=== PATIENT | male | born 1950 | race African-American/Black ===

== ENCOUNTER 2019-12-10 21:16 | Inpatient (IN) | payer MEDICARE, OTHER ==
[~2019-12-10] VITALS: Ht 172.7 cm; Wt 64.9 kg
[2019-12-10] MEDS ORDERED: SODIUM CHLORIDE 0.9% 1,000 ML IV ONE (21:40)
[2019-12-10] MEDS ORDERED: LEVETIRACETAM 500MG PREMIX 100 ML IV ONE (21:45)
[2019-12-10] MEDS ORDERED: LORAZEPAM 2MG/ML CPJ IV ONE ×2 (21:45→23:15)
[2019-12-10] MEDS ORDERED: LORAZEPAM 2MG/ML CPJ ONE (21:45)
[2019-12-10] MEDS ORDERED: MIDAZOLAM HCL 2 MG/2 ML VIAL ONE (22:11)
[2019-12-10] MEDS ORDERED: PROPOFOL 10MG/ML 100ML 100 ML IV ONE ×2 (22:16→22:30)
[2019-12-10] MEDS ORDERED: VECURONIUM BROMIDE 10 MG/VIAL IV ONE (22:30)
[2019-12-10] MEDS ORDERED: MIDAZOLAM HCL 2 MG/2 ML VIAL IV ONE (22:30)
[2019-12-10] MEDS ORDERED: ETOMIDATE 2MG/ML 10ML VIAL IV ONE (22:30)
[2019-12-10 22:36] LABS: BASOPHILS % 1.1 % (0.0-2.0); HEMATOCRIT. 38.8 % (42.0-52.0); HEMOGLOBIN. 12.2 g/dL (14.0-18.0); LYMPHOCYTES % 19.4 % (20.0-50.0); MEAN CORPUSCULAR HEMOGLOBIN 26.6 pg (28.0-32.0); MEAN CORPUSCULAR VOLUME 84.4 fL (80.0-94.0); MEAN PLATELET VOLUME 8.2 fl (7.4-10.4); MONOCYTES % 5.6 % (2.0-8.0); NEUTROPHILS % 73.9 % (40.0-76.0); PLATELET 232 x1000/uL (130-400); RED CELL DISTRIBUTION WIDTH 26.7 % (11.6-14.6)
[2019-12-10 22:53] LABS: CHLORIDE 104 mEq/L (98-107)
[2019-12-10 22:58] LABS: PLATELET ESTIMATE NORMAL
[2019-12-10 23:04] LABS: CREATINE KINASE 100 IU/L (39-308); ETHANOL BLOOD < 10 mg/dL
[2019-12-10 23:14] LABS: CARBAMAZEPINE < 0.5 ug/mL (4-12); PHENOBARBITAL < 2.1 ug/mL (15.0-40.0); VALPROIC ACID < 3.0 ug/mL (50-100)
[2019-12-10] MEDS ORDERED: LORAZEPAM 2MG/ML CPJ IM ONE (23:15)
[2019-12-11] VITALS (75 sets, daily range): BP systolic 106–179; BP diastolic 56–104
[2019-12-11 00:45] LABS: BG BASE EXCESS -2.9 mmol/L (-2.0-2.0); BG CARBOXYHEMOGLOBIN 0.3 % (0.5-1.5); BG DEOXYHEMOGLOBIN 3.4 % (0.0-5.0); BG FRACTION INSPIRED OXYGEN 60; BG HCO3 ACT 22.6 mmol/L (22.0-26.0); BG METHEMOGLOBIN 0.2 % (0.0-1.5); BG OXYGEN SATURATION 96.6 % (92.0-98.5); BG OXYHEMOGLOBIN 96.1 % (94.0-97.0); BG PCO2 42.1 mmHg (35.0-45.0); BG PH 7.348 (7.350-7.450); BG PO2 97.4 mmHg (75.0-100.0); BG SAMPLE SITE LEFT BRACHIAL; BG TIDAL VOLUME(mL) 550 mL; BG TOTAL HEMOGLOBIN 11.7 g/dL (12.0-18.0); BG VENT MODE VENT - A/C; BG VENT RATE 14 set
[2019-12-11] MEDS: PROPOFOL 10MG/ML 100ML 100 ML IV PRN ×2 (03:28→08:28)
[2019-12-11] MEDS ORDERED: CARV12.545 MT (03:56)
[2019-12-11] MEDS ORDERED: TERA1CAP7 MT (03:57)
[2019-12-11] MEDS ORDERED: LORAZEPAM 2MG/ML CPJ IV PRN (05:45)
[2019-12-11] MEDS ORDERED: HYDRALAZINE 20MG/ML VIAL IV PRN (05:45)
[2019-12-11] MEDS ORDERED: LACTULOSE 20G/30ML UDC PO SCH (08:00)
[2019-12-11 08:15] LABS: BG BASE EXCESS -2.7 mmol/L (-2.0-2.0); BG CARBOXYHEMOGLOBIN 0.3 % (0.5-1.5); BG DEOXYHEMOGLOBIN 1.9 % (0.0-5.0); BG FRACTION INSPIRED OXYGEN 60; BG HCO3 ACT 21.1 mmol/L (22.0-26.0); BG OXYGEN SATURATION 98.1 % (92.0-98.5); BG OXYHEMOGLOBIN 97.8 % (94.0-97.0); BG PCO2 33.4 mmHg (35.0-45.0); BG PH 7.419 (7.350-7.450); BG PO2 134.4 mmHg (75.0-100.0); BG SAMPLE SITE RIGHT RADIAL; BG TIDAL VOLUME(mL) 550 mL; BG TOTAL HEMOGLOBIN 11.6 g/dL (12.0-18.0); BG VENT MODE VENT - A/C; BG VENT RATE 14 set
[2019-12-11] MEDS: HEPARIN 5000 UNITS/ML VIAL SUBCUT SCH ×2 (08:30→20:32)
[2019-12-11 08:39] LABS: CLARITY URINE CLEAR (CLEAR); COLOR URINE YELLOW (YELLOW); KETONES URINE NEGATIVE (NEGATIVE); LEUKOCYTE ESTERASE URINE NEGATIVE (NEGATIVE); NITRITE URINE NEGATIVE (NEGATIVE); OCCULT BLOOD URINE 1+ (NEGATIVE); PH URINE 5.5 (4.5-8.0); PROTEIN URINE NEGATIVE (NEGATIVE); SPECIFIC GRAVITY URINE 1.025 (1.005-1.030); UROBILINOGEN URINE 0.2 E.U./dL (0.2-1.0)
[2019-12-11] MEDS ORDERED: RIFAXIMIN 550 MG TABLET PO SCH (09:00)
[2019-12-11] MEDS ORDERED: PANTOPRAZOLE SODIUM 40 MG/VIAL IV SCH (09:00)
[2019-12-11] MEDS ORDERED: LEVETIRACETAM 500MG PREMIX 100 ML IV SCH ×2 (09:00→11:45)
[2019-12-11 09:01] LABS: *AMPHETAMINES SCREEN URINE NEGATIVE (NEGATIVE); *BARBITURATES SCREEN URINE NEGATIVE (NEGATIVE); *COCAINE SCREEN URINE NEGATIVE (NEGATIVE); CANNABINOID URINE SCREEN NEGATIVE (NEGATIVE); OPIATES URINE SCREEN NEGATIVE (NEGATIVE); PHENCYCLIDINE URINE SCREEN NEGATIVE (NEGATIVE)
[2019-12-11 09:02] LABS: *BENZODIAZEPINES SCREEN URINE PRESUMTIVE POSITIVE (NEGATIVE)
[2019-12-11 09:03] LABS: METHADONE URINE SCREEN NEGATIVE (NEGATIVE)
[2019-12-11] MEDS ORDERED: FOLI0.4T2 MT (09:37)
[2019-12-11] MEDS ORDERED: FERR325T6 PO (09:37)
[2019-12-11] MEDS ORDERED: CARV12.545 PO (09:37)
[2019-12-11] MEDS: PANTOPRAZOLE 40MG DR TABLET PO SCH (09:45)
[2019-12-11] MEDS ORDERED: PROPOFOL 10MG/ML 100ML 100 ML IV PRN (11:15)
[2019-12-11 12:07] LABS: BASOPHILS % 1.1 % (0.0-2.0); EOSINOPHILS % 0.2 % (0.0-5.0); HEMATOCRIT. 33.7 % (42.0-52.0); LYMPHOCYTES % 9.5 % (20.0-50.0); MEAN CORPUSCULAR HEMOGLOBIN 26.4 pg (28.0-32.0); MEAN CORPUSCULAR VOLUME 81.1 fL (80.0-94.0); MEAN PLATELET VOLUME 8.6 fl (7.4-10.4); MONOCYTES % 11.9 % (2.0-8.0); NEUTROPHILS % 77.3 % (40.0-76.0); PLATELET 195 x1000/uL (130-400); RED BLOOD CELL COUNT 4.16 mill/uL (4.7-6.1); RED CELL DISTRIBUTION WIDTH 26.7 % (11.6-14.6)
[2019-12-11 12:21] LABS: CHLORIDE 108 mEq/L (98-107)
[2019-12-11] MEDS: SODIUM CHLORIDE 0.9% 1,000 ML IV SCH (13:06)
[2019-12-11] MEDS: FOLIC ACID 1MG TABLET PO SCH (13:06)
[2019-12-11] MEDS: THIAMINE HCL 100MG TABLET PO SCH (13:06)
[2019-12-11] MEDS: MULTIVITAMINS,THER W-MINERALS TABLET PO SCH (13:06)
[2019-12-11 13:30] LABS: HEPATITIS B SURFACE ANTIGEN NEGATIVE
[2019-12-11 14:00] LABS: HEPATITIS A AB IGM NEGATIVE (NEGATIVE)
[2019-12-11] MEDS: MIDAZOLAM HCL 50 MG in DEXTROSE 5% WATER 40 ML IV PRN ×2 (14:04→20:46)
[2019-12-11] MEDS: FENTANYL CITRATE/PF 500 MCG in SODIUM CHLORIDE 0.9% 40 ML IV PRN ×2 (14:04→20:45)
[2019-12-11 16:01] LABS: FERRITIN 82 ng/mL (22-322)
[2019-12-11 16:14] LABS: VITAMIN B12 SERUM 555 pg/mL (211-911)
[2019-12-11 16:21] LABS: FOLIC ACID (FOLATE) SERUM > 20.00 ng/mL (>5.38)
[2019-12-11] MEDS: PIPERACILLIN/TAZOBACTAM 3.375 G in DEXT 5% WATER 100 ML IV SCH ×2 (17:02→20:31)
[2019-12-11 17:20] LABS: CREATINE KINASE MB FRACTION 1.5 ng/mL (0.5-3.6)
[2019-12-11 17:24] LABS: PROTHROMBIN TIME 10.4 sec (9.6-11.0)
[2019-12-11] MEDS: CARVEDILOL 3.125 MG TABLET PO SCH (20:32)
[2019-12-11] MEDS: LEVETIRACETAM 1,000 MG in SODIUM CHLORIDE 0.9% 100 ML IV SCH (21:35)
[2019-12-12] VITALS (76 sets, daily range): BP systolic 113–150; BP diastolic 59–77
[2019-12-12] MEDS: PIPERACILLIN/TAZOBACTAM 3.375 G in DEXT 5% WATER 100 ML IV SCH ×3 (02:23→15:04)
[2019-12-12] MEDS: FENTANYL CITRATE/PF 500 MCG in SODIUM CHLORIDE 0.9% 40 ML IV PRN ×2 (05:50→14:06)
[2019-12-12 07:05] LABS: CHLORIDE 111 mEq/L (98-107)
[2019-12-12 07:13] LABS: BASOPHILS % 0.3 % (0.0-2.0); EOSINOPHILS % 0.5 % (0.0-5.0); HEMATOCRIT. 29.5 % (42.0-52.0); HEMOGLOBIN. 9.6 g/dL (14.0-18.0); LYMPHOCYTES % 17.8 % (20.0-50.0); MEAN CORPUSCULAR HEMOGLOBIN 26.6 pg (28.0-32.0); MEAN CORPUSCULAR VOLUME 81.6 fL (80.0-94.0); MEAN PLATELET VOLUME 8.3 fl (7.4-10.4); MONOCYTES % 13.2 % (2.0-8.0); NEUTROPHILS % 68.2 % (40.0-76.0); PLATELET 191 x1000/uL (130-400); RED BLOOD CELL COUNT 3.61 mill/uL (4.7-6.1); RED CELL DISTRIBUTION WIDTH 26.3 % (11.6-14.6)
[2019-12-12] MEDS: MULTIVITAMINS,THER W-MINERALS TABLET PO SCH (08:18)
[2019-12-12] MEDS: CARVEDILOL 3.125 MG TABLET PO SCH (08:18)
[2019-12-12] MEDS: THIAMINE HCL 100MG TABLET PO SCH (08:18)
[2019-12-12] MEDS: FOLIC ACID 1MG TABLET PO SCH (08:19)
[2019-12-12] MEDS: PANTOPRAZOLE 40MG DR TABLET PO SCH (08:19)
[2019-12-12] MEDS: HEPARIN 5000 UNITS/ML VIAL SUBCUT SCH (08:20)
[2019-12-12] MEDS: SODIUM CHLORIDE 0.9% 1,000 ML IV SCH (08:21)
[2019-12-12] MEDS ORDERED: POTASSIUM CHLORIDE 20MEQ/PACKET PO NR (09:00)
[2019-12-12 09:11] LABS: BG BASE EXCESS 4.1 mmol/L (-2.0-2.0); BG CARBOXYHEMOGLOBIN 0.3 % (0.5-1.5); BG DEOXYHEMOGLOBIN 2.6 % (0.0-5.0); BG FRACTION INSPIRED OXYGEN 40; BG HCO3 ACT 28.8 mmol/L (22.0-26.0); BG METHEMOGLOBIN 0.2 % (0.0-1.5); BG OXYGEN SATURATION 97.4 % (92.0-98.5); BG OXYHEMOGLOBIN 96.9 % (94.0-97.0); BG PCO2 43.9 mmHg (35.0-45.0); BG PH 7.435 (7.350-7.450); BG PO2 105.8 mmHg (75.0-100.0); BG SAMPLE SITE RIGHT BRACHIAL; BG TIDAL VOLUME(mL) 550 mL; BG VENT MODE VENT - A/C; BG VENT RATE 14 set
[2019-12-12] MEDS: LEVETIRACETAM 1,000 MG in SODIUM CHLORIDE 0.9% 100 ML IV SCH (10:00)
[2019-12-12] MEDS: MIDAZOLAM HCL 50 MG in DEXTROSE 5% WATER 40 ML IV PRN (10:29)
[2019-12-12] MEDS ORDERED: IPRATROPIUM/ALBUTEROL 0.5-3(2.5)MG/3ML NEB HHN SCH (12:00)
== END 2019-12-12 20:20 | disposition short-term general hospital (02) | DRG 208 ==
LOC: ER 21:16 → CVICU 23:29 → EDBEDREQTM 23:44 → EDBEDREQ 23:44 → ENRESERV 23:47
PROVIDERS: ADMIT Internal Medicine; ATTEND Internal Medicine
PROC: 5A1945Z Respiratory Ventilation, 24-96 Consecutive Hours (ICD-10-PCS; principal; 2019-12-10)
PROC: 0BH18EZ Insertion of Endotracheal Airway into Trachea, Via Natural or Artificial Opening Endoscopic (ICD-10-PCS; 2019-12-10)
DX: J96.00 Acute respiratory failure, unspecified whether with hypoxia or hypercapnia (principal); J69.0 Pneumonitis due to inhalation of food and vomit; E46 Unspecified protein-calorie malnutrition; E72.20 Disorder of urea cycle metabolism, unspecified; G93.40 Encephalopathy, unspecified; I50.22 Chronic systolic (congestive) heart failure; C79.31 Secondary malignant neoplasm of brain; C34.90 Malignant neoplasm of unspecified part of unspecified bronchus or lung; G40.901 Epilepsy, unspecified, not intractable, with status epilepticus; R74.0 Nonspecific elevation of levels of transaminase and lactic acid dehydrogenase [LDH]; D64.9 Anemia, unspecified; R16.0 Hepatomegaly, not elsewhere classified; F10.11 Alcohol abuse, in remission; G93.89 Other specified disorders of brain; I11.0 Hypertensive heart disease with heart failure; J44.9 Chronic obstructive pulmonary disease, unspecified; K80.20 Calculus of gallbladder without cholecystitis without obstruction; Z78.1 Physical restraint status; Z68.21 Body mass index [BMI] 21.0-21.9, adult; Z85.118 Personal history of other malignant neoplasm of bronchus and lung; Z87.891 Personal history of nicotine dependence; Z92.21 Personal history of antineoplastic chemotherapy; Z92.3 Personal history of irradiation; Z79.899 Other long term (current) drug therapy
CPT/HCPCS: 36415; 36600; 70551; 71045; 76700; 80048; 80053; 80061; 80076; 80156; 80165; 80184; 80185; 80305; 80320; 81003; 82140; 82375; 82550; 82553; 82607; 82728; 82746; 82805; 83036; 83540; 83550; 84443; 84478; 84484; 85025; 86705; 86709; 86803; 87070; 87340; 93005; 93306; 93970; 94002; 94003; 96365; 99291; C9113; J1644; J1953; J2060; J2250; J2543; J2704; J3010; J7030; J7050; J7060; G0480

== ENCOUNTER 2020-04-23 20:45 | Emergency (ER) | payer OTHER ==
[~2020-04-23] VITALS: Ht 177.8 cm; Wt 73.0 kg
[~2020-04-23 20:45] MED LIST: CARV12.545 MT; CARV12.545 PO; FERR325T6 PO; FOLI0.4T2 MT; TERA1CAP7 MT
[2020-04-23 21:50] LABS: BASOPHILS % 1.4 % (0.0-2.0); EOSINOPHILS % 2.2 % (0.0-5.0); HEMATOCRIT. 27.9 % (42.0-52.0); HEMOGLOBIN. 8.9 g/dL (14.0-18.0); LYMPHOCYTES % 17.4 % (20.0-50.0); MEAN CORPUSCULAR HEMOGLOBIN 23.9 pg (28.0-32.0); MEAN CORPUSCULAR VOLUME 74.7 fL (80.0-94.0); MEAN PLATELET VOLUME 7.5 fl (7.4-10.4); MONOCYTES % 11.3 % (2.0-8.0); NEUTROPHILS % 67.7 % (40.0-76.0); PLATELET 438 x1000/uL (130-400); RED BLOOD CELL COUNT 3.74 mill/uL (4.7-6.1)
[2020-04-23 21:51] LABS: CHLORIDE 100 mEq/L (98-107)
[2020-04-23 21:55] LABS: ETHANOL BLOOD < 10 mg/dL
[2020-04-23 22:06] LABS: PLATELET ESTIMATE INCREASED
[2020-04-24 03:08] VITALS: BP 132/63
[2020-04-24 06:48] LABS: *AMPHETAMINES SCREEN URINE NEGATIVE (NEGATIVE); *BARBITURATES SCREEN URINE NEGATIVE (NEGATIVE); *BENZODIAZEPINES SCREEN URINE NEGATIVE (NEGATIVE)
[2020-04-24 06:49] LABS: *COCAINE SCREEN URINE NEGATIVE (NEGATIVE); CANNABINOID URINE SCREEN PRESUMTIVE POSITIVE (NEGATIVE); METHADONE URINE SCREEN NEGATIVE (NEGATIVE); OPIATES URINE SCREEN NEGATIVE (NEGATIVE); PHENCYCLIDINE URINE SCREEN NEGATIVE (NEGATIVE)
== END 2020-04-24 03:36 | disposition short-term general hospital (02) ==
LOC: ER 20:45
DX: R41.82 Altered mental status, unspecified (principal); I10 Essential (primary) hypertension; Z85.9 Personal history of malignant neoplasm, unspecified; Z79.899 Other long term (current) drug therapy; Z88.8 Allergy status to other drugs, medicaments and biological substances
CPT/HCPCS: 36415; 71045; 80053; 80305; 80320; 85025; 93005; 99285; G0480